=== PATIENT | female | born 1945 | race Caucasian/White ===

== ENCOUNTER 2016-05-27 10:00 | Day surgery (SDC) | payer MEDICARE, MEDICAID ==
[~2016-05-27] VITALS: Ht 160 cm; Wt 93.0 kg
[~2016-05-27 10:00] MED LIST: ACET325T51 PO; ALBU2.5V4 INHALATION; ALBU8.5H2 IH; AMIT10TA6 PO; ASCO250T7 PO; ASPI325T32 PO; BUPR150T8 PO; CHOL100043 PO; CYAN500 PO; CYAN500L3 SL; DIF100A PO; DIGO250T72 PO; DILT30TA PO; DIPH50C PO; DOCU-41 PO; FERR-83 PO; FLUT1DIS5 IH; FOLI1TAB18 PO; FRSM80T PO; GLPZ5T PO; HYDR-4003 PO; IBUP200C11 PO; LACT1CAP65 PO; LANS15TA3 PO; LORA-302 PO; LORA10CA PO; Lactated Ringer's 1,000 ML IV ONE; MAGN64TA7 PO; METO25TA6 PO; METR45GE TOP; MINE3.5O BOTH_EYES; MTC5T PO; MULT-1018 PO; MULT1CAP33 PO; NORT10CA PO; NYST15CR TP; OMEP20CA11 PO; POLY17PO6 PO; POTA-62 PO; PROM12.510 PO; PSEU30CA2 PO; SENN1TAB90 PO; SIMV20TA4 PO; TRAZ-115 PO
[2016-05-27] MEDS ORDERED: Propofol 10,000 mCg/mL 20 mL Inj ONE (10:01)
[2016-05-27 10:43] VITALS: BP 143/83; PULSE 103; RESP 14; O2SAT 94
[2016-05-27] MEDS ORDERED: Lactated Ringer's 1,000 ML IV SCH (10:51)
--- NOTE | 2016-05-27 10:51 | PCM.HPANE ---
Patient Data Surgeon Admitting Provider: Attending Provider:Qasim Curry MD Primary Care Physician:Jeffery Henriquez MD Other Provider:[facility] Reason for Visit Epigastic Abdominal Pain Ht/WT & BMI Height (Feet): 5 Height (Inches): 3 Weight (Kilograms): 92.99 Body Mass Index 36.00 Allergies Coded Allergies: Contrast Media (Unverified Allergy, Severe, Anaphylaxis, 11/07/14) I DID CONFIRM CONTRAST ALLERGY WITH PATIENT DUE TO PATIENT HAVING CONTRAST PRIOR WITHOUT COMPLICATIONS LISTED. PATIENT STATED "SHE ALMOST " WHEN ASKING ABOUT HER REACTION. SHE DID STATE IT WAS A CAT SCAN Shellfish (Verified Allergy, Severe, 11/07/14) iodine (Verified Allergy, Severe, 11/07/14) furosemide (Verified Allergy, Unknown, 05/26/16) warfarin (Verified Allergy, Unknown, 11/07/14) Uncoded Allergies: ANY SCENTS (Allergy, Unknown, 01/08/14) CLEANING CHEMICALS (Allergy, Unknown, 01/08/14) CARTWRIGHT (Allergy, Unknown, 01/08/14) Past Anesthesia History Anesthesia History: Denies:: Abnormal Airway, Anesthesia Reactions, Difficult Intubation, Fam Anesthesia Reaction, Fam Malignant Hypertherm, Malignant Hyperthermia Diabetes History Hx Diabetes?: Yes MRSA MRSA: Yes (knee, thigh, abdomen) Medications Blood Thinner: Aspirin Last Dose Blood Thinner: May 25, 2016 Reported Medications Bupropion ER (Wellbutrin SR)150 Mg Tablet.er150 Mg PO BID Ref 0 05/26/16 Pseudoephedrine HCl (Nasal Decongestant)30 Mg Isyzzhv57 Mg PO 05/26/16 Omeprazole 20 Mg Capsule.dr20 Mg PO DAILY Ref 0 05/26/16 Nystatin/Triamcin (Nystatin-Triamcinolone Cream)15 Gm Cream..g.15 Gm TP 05/26/16 Metoclopramide 5 Mg Tablet5 Mg PO QID PRN For Nausea Ref 0 05/26/16 Lansoprazole ODT (Prevacid ODT)15 Mg Xoohpe16 Mg PO DAILY Ref 0 05/26/16 Diltiazem 30 Mg Ritteb10 Mg PO QID 05/26/16 Cyanocobalamin (Vitamin B12)500 Mcg Xiqwan876 Mcg PO DAILY 10/26/15 Fluconazole (Diflucan)100 Mg Chv639 Mg PO X 1 DOSE YEAST Ref 0 2/29/16 Diphenhydramine Hcl (Benadryl)50 Mg Dyppfrr41 Mg PO Q6H ALLERGIES 07/06/15 Albuterol Neb Soln 2.5 Mg/3 Ml Vial.neb2.5 Mg INHALATION Q4H PRN For Wheezing Ref 0 07/06/15 Fluticasone/Salmeterol (Advair 500-50 Diskus)1 Each Disk.w.dev1 Puff IH BID Ref 0 07/06/15 Fluticasone/Salmeterol (Advair 500-50 Diskus)1 Each Disk.w.dev1 Puff IH BID Ref 0 04/20/15 Acetaminophen 325 Mg Qcalin284 Mg PO Q4H PRN For Fever Ref 0 03/26/15 Lorazepam (Ativan)0.5 Mg Tablet0.5 Mg PO Q8HRS PRN PRN For Insomnia Ref 0 03/26/15 Lactobacillus Acidophilus (Probiotic)1 Each Capsule1 Each PO WITH MEALS 03/26/15 Bupropion ER (Wellbutrin SR)150 Mg Tablet.er150 Mg PO BID Ref 0 03/26/15 Cholecalciferol (Vitamin D3) (Vitamin D)1,000 Unit Tablet1,000 Unit PO DAILY Ref 0 03/26/15 Potassium Chloride ER 20 Meq Tablet.er40 Meq PO DAILY Ref 0 TAKE WITH FOOD 03/26/15 Digoxin 250 Mcg Asqoqn494 Mcg PO DAILY Ref 0 03/26/15 Aspirin 325 Mg Bptcnh955 Mg PO DAILY #1 BOTTLE 03/26/15 Amitriptyline 10 Mg Hgtwqp40 Mg PO HS Ref 0 03/26/15 Polyethylene Glycol 3350 (Miralax)17 Gm Powd.pack17 Gm PO 03/19/15 Docusate Sodium (Colace)100 Mg Jcgrvov289 Mg PO BID PRN For Constipation Ref 0 03/19/15 Metoprolol Tartrate 25 Mg Pdiatm15 Mg PO BID 30 Days Ref 0 03/02/15 Glipizide 5 Mg Tablet2.5 Mg PO BIDAC 30 Days 03/02/15 Sennosides/Docusate Sodium (Senna-Docusate Sodium Tablet)1 Each Tablet2 Each PO HS 02/02/15 Loratadine (Claritin)10 Mg Gfgkayz71 Mg PO DAILY Ref 0 02/02/15 Hydrocodone-Acetaminophen 5-325 mg 1 Each Tablet1 Tablet PO Q4H PRN For Pain Ref 0 02/02/15 Cyanocobalamin (Vitamin B-12) (B-12)500 Mcg Tab.jahqwk170 Mcg SL 02/02/15 Ascorbic Acid (Vitamin C)250 Mg Tab.cbhk543 Mg PO DAILY #30 TABLET Ref 0 02/02/15 Magnesium Chloride (Mag64)64 Mg Tablet.er128 Mg PO BID 11/07/14 Trazodone 50 Mg Muyuec89 Mg PO DAILY 30 Days Ref 0 11/07/14 Mineral Oil/Petrolatum,White (Refresh Lacri-Lube Ointment)3.5 Gm Oint...g.3.5 Gm BOTH_EYES Q24 PRN dry eyes 11/07/14 Promethazine 12.5 Mg Dzmshg76.5 Mg PO Q6 11/07/14 Albuterol HFA (Proair HFA)8.5 Gm Hfa.aer.ad2 Puffs IH Q4 PRN For Shortness of Breath #1 INHALER 11/07/14 Metronidazole (Metronidazole Gel)1 Applic/0.25 Gm Gel1 Applic TOP DAILY #45 GM Ref 0 11/07/14 Furosemide 80 Mg Tab40 Mg PO DAILY 30 Days Ref 0 11/07/14 Ferrous Sulfate 325 Mg Nwccpr954 Mg PO DAILY 30 Days Ref 0 11/07/14 Multivitamin (Multi Vitamin Daily)1 Each Tablet1 Each PO DAILY 30 Days Ref 0 07/17/14 Simvastatin 20 Mg Tablet Mg PO HS 30 Days Ref 0 01/08/14 Ibuprofen (Advil)200 Mg Hqiawpy602 Mg PO Q6 PRN For Pain 01/08/14 Folic Acid 1 Mg Tablet1 Mg PO DAILY 30 Days 01/08/14 Nortriptyline 10 Mg Xzcilut64 Mg PO HS 30 Days 01/08/14 Discontinued Reported Medications Multivitamin (Multivitamins)1 Each Capsule1 Each PO 05/26/16 History History of ENT Problems?: No HEENT History: Positive for:: Dysphagia (mild) Denies:: Abnormal Airway Difficult Intubation Hearing Problem Denture Type: Full- Upper Full- Lower Hx of Heart Problems?: Yes Cardiovascular History: Positive for:: Atrial Fibrillation Congestive Heart Failure Edema (bilat lower exttremity lymphadema) Hypertension Irregular Heartbeat (afib) Other Cardiac History: CHF Hx of Respiratory Problem?: Yes Respiratory History: Positive for:: Asthma COPD Dyspnea Emphysema Pneumonia Other Resp Pertinent History: 2L of O2 at night time. Hx Neurologic Problems?: No Neurological History: Denies:: CVA Hx of GI Problems?: Yes Gastrointestinal History: Positive for:: Gall Bladder Disease (removed) Gastroesphageal Reflux Hiatal Hernia Other GI Pertinent History: hx UTI's Genitourinary History: Positive for:: Kidney Stones Female Hx: Denies:: Currently Hx Musculoskeletal Problems?: Yes Hx of Psycho/Social Problems?: No Psycho Social History: Positive for:: Hx Depression Hx Surgeries?: No (tonsillectomy,appy, hysterectomy, alok, lymph node diss., hernia repair,) Hx Any Other Health Problems?: Yes Other History: Positive for:: Cancer (NON HODGKINS LYMPHOMA) Hospitalization Denies:: Thyroid Disease History Blood Transfusions: Positive for:: Blood Transfusions Denies:: Blood Transfuse Reaction Hx Diabetes: Yes Hx Alcohol Use: NoHx Substance Use: No Smoking Status: Former Smoker Have You Smoked inLast 12 mo: No Stop/Bang Treated for Sleep Apnea?: No Do You Have a CPAP Machine?: No S-Snoring: Do You Snore Loudly: Yes T-Tired: feel tired, fatigued: No O-Obsered: Observed not breath: No P-Blood Pressure: treated: Yes B- Body Mass Index > 35 kg/m2: Yes A- Age over 50: Yes N- Neck Large Circumference: No G- Gender Male: No GIL Total Score: 4 GIL Risk Assessment: High Risk, =/>3 Yes Risk Assessment Category Category 1A: Patient has history of documented sleep apnea, and HAS NOT received any narcotic, sedative or anesthesia administration during this stay. Category 1B: Patient has history of documented sleep apnea, and HAS received any narcotic , sedative or anesthesia administration during this stay Category 2: Patient has SUSPECTED Obstructive Sleep Apnea, and HAS received any narcotic , sedative or anesthesia administration during this stay. Category 3: Patient has SUSPECTED Obstructive Sleep Apnea and HAS NOT received narcotic, sedative or anesthesia administration during this stay. Category 4: Outpatient in Procedural Areas with known sleep apnea or who screen positive for High Risk via the STOP/BANG questionnaire. Exam Exam Vital Signs Vital Signs Date Time Temp Pulse Resp B/P Pulse Ox O2 Delivery O2 Flow Rate FiO2 05/27/16 10:43 37.1 103 14 143/83 94 Room Air General Appearance: Oriented X3 HEENT/AIRWAY: MP 2 Lungs: Normal Air Movement Heart: Other Meds/Labs/Diagnostics Admission Meds Current Medications Lactated Ringer's (Lr) 1,000 ml @ 10 mls/hr Q24H ONCE IV Last administered on 05/27/16t 10:45; Start 05/27/16 at 06:00; Stop 05/28/16 at 05:59 Plan Impression Patient chart reviewed, patient interviewed and anesthestic plan with risks, benefits, and alternatives discussed, and informed consent obtained. ASA Physical Status: ASA3 Severe Disease Anesthetic Plan: MAC Bene/Risks/Altern/Consents: Yes HP Complete Prior to Induction: Yes Wei Tompkins MD May 27, 2016 10:50
[2016-05-27] MEDS ORDERED: Ondansetron 2 mg/mL 2 mL Inj IVPUSH PRN (10:55)
[2016-05-27] MEDS ORDERED: MetoCLOpramide 5 mg/mL 2 mL Inj IVPUSH PRN (10:55)
[2016-05-27 11:14] VITALS: BP 88/65; PULSE 97; RESP 17; O2SAT 91
[2016-05-27 11:20] VITALS: BP 94/66; PULSE 95; RESP 17; O2SAT 94
[2016-05-27 11:25] VITALS: BP 116/77; PULSE 94; RESP 17; O2SAT 94
[2016-05-27 11:35] VITALS: BP 104/78; PULSE 102; RESP 17; O2SAT 97
--- NOTE | 2016-05-27 11:39 | ENDO ---
[address] [address] ENDOSCOPY PROCEDURE PATIENT: PEACE KARIMI : 1945 MR#: [id number] ADMIT: 05/27/2016 JOB ID: [id number] DATE: 05/27/2016 TYPE OF OPERATION: Esophagogastroduodenoscopy with biopsy. PREOPERATIVE DIAGNOSIS(ES): GERD, epigastric pain. POSTOPERATIVE DIAGNOSIS(ES): Mild nonerosive gastritis with gastric erosions status post biopsy. ANESTHESIA: Monitored anesthesia care. COMPLICATIONS: None. BLOOD LOSS: Minimal. DESCRIPTION OF PROCEDURE: After the risks and benefits were explained to the patient, informed consent was obtained. After anesthesia administered, an upper endoscope was inserted into the mouth intubating the esophagus, stomach, second portion of duodenum. Mucosa carefully examined. After procedure was done, the scope was withdrawn and procedure terminated. FINDINGS: Upon entering the esophagus, the esophagus was normal without masses, ulcers, or lesions. Z-line located 40 cm from incisors. Upon entering the stomach, there was mild nonerosive gastritis and gastric erosions seen throughout the entire stomach. Retroflexion was normal. Duodenal bulb, first portion were normal. Biopsies taken antrum and body of the stomach and distal esophagus. IMPRESSIONS: Mild nonerosive gastritis and gastric erosions. RECOMMENDATION: 1. Await pathology results. 2. Continue anti-reflux medication. 3. Followup in GI clinic as needed.
--- NOTE | 2016-05-27 11:56 | PCM.ANEP1 ---
Post Anesthesia Phase 1 PACU Phase 1 Assessment Vital Signs Vital Signs Date Time Temp Pulse Resp B/P Pulse Ox O2 Delivery O2 Flow Rate FiO2 05/27/16 10:43 37.1 103 14 143/83 94 Room Air Anesthetic Administered: MAC Level of Alertness: Awake, talking Pain: No Nausea or Vomiting: No Oxygen Delivery: Room Air Lungs: Normal Air Movement Wei Tompkins MD May 27, 2016 11:56
--- NOTE | 2016-05-27 11:56 | PCM.ANEP2 ---
Post Anesthesia Evaluation ASA/CMS Post Anesthesia VS in Patient's Normal Range?: Yes Resp Stable; Airway Patent?: Yes CV Function & Hydration Stable: Yes Mental Status Recovered?: Yes Pain control Satisfactory?: Yes N/V Control Satisfactory?: Yes Wei Tompkins MD May 27, 2016 11:56
--- NOTE | 2016-05-31 14:20 | PATH ---
SURGICAL PATHOLOGY Attending Physician:Qasim Curry MD CASE STATUS: Signed Out PATIENT NAME: PEACE KARIMI PID: [id number] : 1945 DATE COLLECTED:05/27/2016 16:23 SPECIMEN: 1: Stomach, Antrum, Biopsy 2: Gastric, Biopsy 3: Esophagus, Biopsy CLINICAL HISTORY: 1: ANTRUM BIOPSY 2: GASTRIC BODY BIOPSY 3: DISTAL ESOPHAGUS BIOPSY FINAL DIAGNOSIS: 1. Antrum Biopsy: Mild to moderate chronic gastritis involving antral mucosa. Negative for Helicobacter pylori by immunohistochemistry. Negative for intestinal metaplasia. Negative for dysplasia and malignancy. 2. Gastric Body Biopsy: Mild to moderate chronic gastritis involving fundic mucosa. Negative for Helicobacter pylori by immunohistochemistry. Negative for intestinal metaplasia. Negative for dysplasia and malignancy. 3. Distal Esophagus Biopsy: Squamous mucosa with mild reactive changes and scattered intraepithelial eosinophils consistent with changes from chronic reflux. No gastric-type epithelium identified. Negative for dysplasia and malignancy. ICD10 K29.70 GROSS DESCRIPTION: The specimen is received in three formalin filled containers labeled with the patient's name. 1. The specimen is sublabeled "antrum" and consists of 2 portions of tissue which aggregate to 0.5 x 0.3 x 0.2 CM. The specimen is entirely submitted in cassette 1A. 2. The specimen is sublabeled "gastric body" and consists of 4 portions of tissue which aggregate to 0.3 x 0.3 x 0.2 CM. The specimen is entirely submitted in cassette 2A. 3. The specimen is sublabeled "distal esophagus" and consists of 2 portions of tissue which aggregate to 0.3 x 0.2 x 0.2 CM. The specimen is entirely submitted in cassette 3A. 05/27/2016 [facility] ICD-9 CODES: CPT CODES: 1: 06936, 31851 2: 10132, 90460 3: 90249 Electronically Signed Out Nathan Nobles MD [facility] [place] [address] Technical component performed at [facility], [facility] [address], [place], [address]
== END 2016-05-27 23:59 | disposition home or self-care (01) ==
LOC: END 10:00
PROVIDERS: ATTEND Internal Medicine Gastroenterology
DX: K29.50 Unspecified chronic gastritis without bleeding (principal); K25.9 Gastric ulcer, unspecified as acute or chronic, without hemorrhage or perforation; K21.9 Gastro-esophageal reflux disease without esophagitis; I11.0 Hypertensive heart disease with heart failure; I50.20 Unspecified systolic (congestive) heart failure; I48.91 Unspecified atrial fibrillation; J44.9 Chronic obstructive pulmonary disease, unspecified; J45.909 Unspecified asthma, uncomplicated; F32.9 Major depressive disorder, single episode, unspecified; M17.10 Unilateral primary osteoarthritis, unspecified knee; E78.2 Mixed hyperlipidemia; E11.9 Type 2 diabetes mellitus without complications; C85.90 Non-Hodgkin lymphoma, unspecified, unspecified site; Z79.51 Long term (current) use of inhaled steroids; Z79.82 Long term (current) use of aspirin; Z79.84 Long term (current) use of oral hypoglycemic drugs
CPT/HCPCS: 43239; J7120

== ENCOUNTER 2016-11-14 13:00 | Emergency (ER) | payer MEDICARE, MEDICAID ==
[~2016-11-14] VITALS: Ht 160 cm; Wt 93.2 kg
[~2016-11-14 13:00] MED LIST changes: -Lactated Ringer's 1,000 ML IV ONE; -MULT1CAP33 PO
[2016-11-14 13:06] VITALS: BP 102/53; PULSE 86; RESP 18; O2SAT 93
--- NOTE | 2016-11-14 13:07 | ED.REPORT ---
HPI-General Illness Date of Service Nov 14, 2016 ED Provider: Dr. Doran Pt is a 71 year old female with a hx of CHF, COPD, afib, cancer, DM, HTN and hyperlipidemia presenting to the ED via EMS complaining of severe abdominal pain onset this morning. She states that she thinks she may have a hernia. Associated symptoms include a cough. Denies vomiting, diarrhea, fever, chills, dysuria, urinary symptoms, or any other symptoms at this time. She is on Digoxin. Nursing Notes Stated Complaint: ABDOMINAL PAIN Chief Complaint: Female Abdominal Pain Nursing Notes Reviewed: Yes Allergies: Coded Allergies: Contrast Media (Unverified Allergy, Severe, Anaphylaxis, 11/07/14) I DID CONFIRM CONTRAST ALLERGY WITH PATIENT DUE TO PATIENT HAVING CONTRAST PRIOR WITHOUT COMPLICATIONS LISTED. PATIENT STATED "SHE ALMOST " WHEN ASKING ABOUT HER REACTION. SHE DID STATE IT WAS A CAT SCAN Shellfish (Verified Allergy, Severe, 11/07/14) iodine (Verified Allergy, Severe, 11/07/14) furosemide (Verified Allergy, Unknown, 05/26/16) warfarin (Verified Allergy, Unknown, 11/07/14) Uncoded Allergies: ANY SCENTS (Allergy, Unknown, 01/08/14) CLEANING CHEMICALS (Allergy, Unknown, 01/08/14) CARTWRIGHT (Allergy, Unknown, 01/08/14) Scheduled Amitriptyline (Amitriptyline) 10 Mg Tablet 10 MG PO HS Ascorbic Acid (Vitamin C) 250 Mg Tab.chew 250 MG PO DAILY Aspirin (Aspirin) 325 Mg Tablet 325 MG PO DAILY Bupropion ER (Wellbutrin SR) 150 Mg Tablet.er 150 MG PO BID Bupropion ER (Wellbutrin SR) 150 Mg Tablet.er 150 MG PO BID Cephalexin (Keflex) 500 Mg Capsule 500 MG PO QID Cholecalciferol (Vitamin D3) (Vitamin D) 1,000 Unit Tablet 1,000 UNIT PO DAILY Cyanocobalamin (Vitamin B12) 500 Mcg Tablet 500 MCG PO DAILY Digoxin (Digoxin) 250 Mcg Tablet 250 MCG PO DAILY Diltiazem (Diltiazem) 30 Mg Tablet 30 MG PO QID Diphenhydramine Hcl (Benadryl) 50 Mg Capsule 50 MG PO Q6H Ferrous Sulfate (Ferrous Sulfate) 325 Mg Tablet 325 MG PO DAILY Fluconazole (Diflucan) 100 Mg Tab 100 MG PO X 1 DOSE Fluticasone/Salmeterol (Advair 500-50 Diskus) 1 Each Disk.w.dev 1 PUFF IH BID Fluticasone/Salmeterol (Advair 500-50 Diskus) 1 Each Disk.w.dev 1 PUFF IH BID Folic Acid (Folic Acid) 1 Mg Tablet 1 MG PO DAILY Furosemide (Furosemide) 80 Mg Tab 40 MG PO DAILY Glipizide (Glipizide) 5 Mg Tablet 2.5 MG PO BIDAC Lactobacillus Acidophilus (Probiotic) 1 Each Capsule 1 EACH PO WITH MEALS Lansoprazole ODT (Prevacid ODT) 15 Mg Tablet 15 MG PO DAILY Loratadine (Claritin) 10 Mg Capsule 10 MG PO DAILY Magnesium Chloride (Mag64) 64 Mg Tablet.er 128 MG PO BID Metoprolol Tartrate (Metoprolol Tartrate) 25 Mg Tablet 25 MG PO BID Metronidazole (Metronidazole Gel) 1 Applic/0.25 Gm Gel 1 APPLIC TOP DAILY Multivitamin (Multi Vitamin Daily) 1 Each Tablet 1 EACH PO DAILY Nortriptyline (Nortriptyline) 10 Mg Capsule 10 MG PO HS Omeprazole (Omeprazole) 20 Mg Capsule.dr 20 MG PO DAILY Potassium Chloride ER (Potassium Chloride ER) 20 Meq Tablet.er 40 MEQ PO DAILY TAKE WITH FOOD Promethazine (Promethazine) 12.5 Mg Tablet 12.5 MG PO Q6 Sennosides/Docusate Sodium (Senna-Docusate Sodium Tablet) 1 Each Tablet 2 EACH PO HS Simvastatin (Simvastatin) 20 Mg Tablet MG PO HS Trazodone (Trazodone) 50 Mg Tablet 75 MG PO DAILY Scheduled PRN Acetaminophen (Acetaminophen) 325 Mg Tablet 325 MG PO Q4H PRN PRN For Fever Albuterol HFA (Proair HFA) 8.5 Gm Hfa.aer.ad 2 PUFFS IH Q4 PRN PRN For Shortness of Breath Albuterol Neb Soln (Albuterol Neb Soln) 2.5 Mg/3 Ml Vial.neb 2.5 MG INHALATION Q4H PRN PRN For Wheezing Docusate Sodium (Colace) 100 Mg Capsule 100 MG PO BID PRN PRN For Constipation Hydrocodone-Acetaminophen 5-325 mg (Hydrocodone-Acetaminophen 5-325 mg) 1 Each Tablet 1 TABLET PO Q4H PRN PRN For Pain Ibuprofen (Advil) 200 Mg Capsule 200 MG PO Q6 PRN PRN For Pain Lorazepam (Ativan) 0.5 Mg Tablet 0.5 MG PO Q8HRS PRN PRN PRN For Insomnia Metoclopramide (Metoclopramide) 5 Mg Tablet 5 MG PO QID PRN PRN For Nausea Mineral Oil/Petrolatum,White (Refresh Lacri-Lube Ointment) 3.5 Gm Oint...g. 3.5 GM BOTH_EYES Q24 PRN PRN dry eyes Miscellaneous Medications Cyanocobalamin (Vitamin B-12) (B-12) 500 Mcg Tab.rapdis 500 MCG SL Nystatin/Triamcin (Nystatin-Triamcinolone Cream) 15 Gm Cream..g. 15 GM TP Polyethylene Glycol 3350 (Miralax) 17 Gm Powd.pack 17 GM PO Pseudoephedrine HCl (Nasal Decongestant) 30 Mg Capsule 60 MG PO General Time Seen by MD: 13:06 Chief Complaint Abdominal pain Hx Obtained From: Patient, EMS Arrived By: Ambulance Sudden in Onset?: No Onset Occurred: Just prior to arrival Symptom Duration: Since onset Location: : Abdomen Quality: Painful Severity: Current: Moderate Severity: Maximum: Severe Recent Healthcare: No recent doctor visit, No recent hospitalization Similar Sx Previous: No Past Medical History Past Medical History History of sepsis with septic shock Constipation History of DVT Adrenal insufficiency Reports: COPD, Cancer, Congestive heart failure, Diabetes mellitus, GERD, Hyperlipidemia, Hypertension Reports: Atrial fibrillation, Depression, Obesity Smoking History Former Smoker Social History Alcohol Use: Denies alcohol use Drug Use: Denies drug use Ambulatory Status Independent Review of Systems Full Review of Systems Constitutional: Denies: Chills, Fever Respiratory: Reports: Non-productive cough GI: Reports: Abdominal pain, Denies: Diarrhea, Nausea, Vomiting Female: Denies: Dysuria, Urinary frequency, Urination decreased Complete sys rev & neg: except as marked. Physical Exam Vital Signs Vital Signs Date Time Temp Pulse Resp B/P Pulse Ox O2 Delivery O2 Flow Rate FiO2 11/14/16 18:01 98 18 111/71 97 11/14/16 15:44 37.3 98 18 106/44 92 Room Air 11/14/16 13:06 38.1 86 18 102/53 93 Room Air Initial VS: Reviewed General/Constitutional: Well-developed, Well-nourished Head / Eyes: Atraumatic, Normocephalic, PERRL ENT: Mucous membranes moist, Conjunctiva normal, No scleral icterus Respiratory: Breath sounds normal, Clear to auscultation, No respiratory distress Back: No CVA tenderness Extremities: Vascular intact, Neuro intact, No swelling, No tenderness Skin: Warm, Dry, No cyanosis Neurologic: Alert, Oriented, Nonfocal Psychiatric: Mood/affect normal, Behavior normal, Normal thought content Cardiovascular: Heart rate NL, Regular rhythm Murmur Abdomen: No guarding, No rebound, No palpable mass Upper abdominal tenderness. Focal upper quadrant tenderness at area of a scar in upper abd. Soft reducible umbilical hernia. Interpretation & Diagnostics Lab Results Interpretation Result Diagram: 11/14/16 1336 11/14/16 1336 Test 11/14/16 13:36 11/14/16 14:40 White Blood Count 10.4th/mm3 (3.8-10.1) Red Blood Count 4.29mil/mm3 (3.90-5.20) Hemoglobin 12.6g/dL (12.0-15.6) Hematocrit 39.3% (35.0-46.0) Mean Corpuscular Volume 91.6fL (81-100) Mean Corpuscular Hemoglobin 29.4pg (27.0-35.0) Mean Corpuscular Hemoglobin Concent 32.1% (32.0-37.0) Red Cell Distribution Width 17.7% (12.3-15.4) Platelet Count 138bil/L (150-400) Neutrophils (%) (Auto) 81.8% (40-74) Lymphocytes (%) (Auto) 7.8% (14-46) Monocytes (%) (Auto) 8.1% (4-12) Eosinophils (%) (Auto) 1.7% (0-5) Basophils (%) (Auto) 0.2% (0-3) Prothrombin Time 11.7sec (8.1-12.5) Prothromb Time International Ratio 1.09ratio Sodium Level 137mEq/L (134-144) Potassium Level 4.2mEq/L (3.5-5.2) Chloride Level 101mEq/L (97-108) Carbon Dioxide Level 22mmol/L (18-29) Blood Urea Nitrogen 15mg/dL (8-27) Creatinine 0.43mg/dL (0.57-1.00) Estimat Glomerular Filtration Rate 207mL/min (>59) Glucose Level 97mg/dL (60-99) Lactic Acid Level 1.1mmol/L (0.4-2.0) Calcium Level 9.2mg/dL (8.5-10.1) Magnesium Level 1.8mg/dL (1.6-2.6) Total Bilirubin 0.9mg/dL (0.0-1.2) Aspartate Amino Transf (AST/SGOT) 20U/L (0-50) Alanine Aminotransferase (ALT/SGPT) 11U/L (0-32) Alkaline Phosphatase 111U/L (25-165) Total Protein 7.5g/dL (6.4-8.4) Albumin 3.4g/dL (3.4-5.0) Lipase 29U/L (13-60) Digoxin Level 2.2nG/mL (0.9-2.0) Urine Color Yellow (YELLOW) Urine Appearance Hazy (CLEAR,HAZY) Urine pH 6.0 (5.0-8.0) Urine Specific [place] 1.005 (1.003-1.035) Urine Protein Negativemg/dL (NEG,TRACE) Urine Glucose (UA) Negativemg/dL (NEGATIVE) Urine Ketones Negativemg/dL (NEGATIVE) Urine Occult Blood Trace (NEGATIVE) Urine Nitrite Negative (NEGATIVE) Urine Bilirubin Negative (NEGATIVE) Urine Urobilinogen Normalmg/dL (NORMAL) Urine Leukocyte Esterase Moderate (NEGATIVE) Urine RBC 0-2/hpf (0-2) Urine WBC 11-50/hpf (0-5) Urine Epithelial Cells Occasional/hpf (NONE-MOD) Urine Crystals None seen (NONE SEEN) Urine Bacteria Many/hpf (NONE-FEW) Urine Hyaline Casts None/lpf (NONE) Urine Granular Casts None seen (NONE SEEN) Urine Waxy Casts None seen (NONE SEEN) Urine Red Blood Cell Casts None seen (NONE SEEN) Urine White Blood Cell Casts None seen (NONE SEEN) Urine Mucus None seen (None Seen) Urine Trichomonas None seen (NONE SEEN) Urine Yeast None (NONE SEEN) Urinalysis Comment None Urine Culture Reflexed Indicated X-Ray Chest Interpretation Chest Xray Interpretation: IMPRESSION: 1. Cardiomegaly as before, without acute cardiopulmonary disease. 2. Trace basal right pleural effusion is of uncertain etiology and clinical significance. Dictated by: Chuck Padgett M.D. on 11/14/2016 at 13:05 View: Portable, 1 view Interpretation / Wet Read by: Interpret - Radiologist CT Abd / Pelvis Interpretation IMPRESSION: Nonobstructive left renal calculi. Nonspecific small 2 mm right renal calcification with differential discussed above. Scant scattered pelvic free fluid, nonspecific finding and unclear etiology. Patient clinically. Soft tissue skin nodules seen in the left anterior abdominal wall. Recommend clinical correlation and direct visual inspection. Skin malignancy cannot be excluded. Prominent bilateral flank subcutaneous edema. No evidence of urinary obstruction. Small bilateral pleural effusions with adjacent atelectasis. Cardiomegaly. Additional chronic and incidental findings as above. Dictated by: Yahir Zaldivar M.D. on 11/14/2016 at 14:18 Study type: Abdominal CT no contrast Interpretation / Wet Read by: Interpret - Radiologist Re-Eval/Medical Decision Med Decision/Clinical Course Patient's pain is focal in the midline upper abdomen overlying scar, there is not radiographic correlation with this on a CAT scan. She does have congestive heart failure and several other incidental findings. Urinalysis is positive for UTI, normal white blood cell count, normal lactic acid, no CVA tenderness, likely a lower urinary tract infection. Temperature was borderline however normalized without any antipyretics. Her Digoxin is mildly outside of the acceptable range she is not having any cardiotoxic effects. Her case is discussed with her primary care who manages her at the residential home, it is felt that she is stable for discharge back. She will hold her digoxin for 4 days, she was given a dose of Rocephin while in the ER and will be started on Keflex. She will be in a monitored care setting. Return in follow-up precautions are given. Time of Eval: 14:45 Patient Status: Condition improved Re-Evaluation/Progress Note: The pt still complains of abdominal pain. Discussed CT and radiology results. Area of pain directly correlates to skin and foci of scar tissue, does not show anything on CT scan. Pt feels good to go home. Consultation : Referral / Consult Name: Charmaine Decker MD Consulted With: Primary care physician Call Returned at: 15:37 Civil Lawyer: Agrees with plan Note: Agrees to take the patient back. Counseled Regarding: Diagnosis, Lab results, Need for follow-up, When/why to return to ED Discharge & Departure Primary Impression: UTI (urinary tract infection) Urinary tract infection type: site unspecified Hematuria presence: without hematuria Qualified Code: N39.0 - Urinary tract infection, site not specified Additional Impressions: Elevated digoxin level Pain, abdominal, nonspecific Disposition: Home Discharge Condition All VS Reviewed: Yes Condition: Improved Additional Instructions: Your workup in the ER does not show an obvious cause for your upper abdominal pain. Your pain seems to correlate to a scar on your upper abdomen. Incidentally you have evidence of a urinary tract infection. This was treated with IV Rocephin while in the ER and will be continued with Keflex at your nursing facility. Additionally your digoxin level was minimally above normal range. Do not take your digoxin for the next 4 days and after 4 days you should have a repeat digoxin level drawn prior to restarting digoxin. Call your regular doctor in the morning for close reevaluation and follow-up. Return to the ER if you develop persistent abdominal pain, high fever, or other concerns. Referrals: Charmaine Decker MD Attestation Portions of this note were transcribed by Krystina De Los Santos. I, Dr. Doran personally performed the history, physical exam and medical decision-making; I reviewed and confirmed the accuracy of the information in the transcribed note. Signed by: Adriana Ware, 11/14/16 at 1549. copies to: Charmaine Decker MD, Timothy Trevor RAVI Nov 14, 2016 13:07 KRYSTINA DE LOS SANTOS Nov 14, 2016 13:18
[2016-11-14] MEDS ORDERED: Ondansetron 2 mg/mL 2 mL Inj IVPUSH PRN (13:20)
[2016-11-14 13:43] LABS: BASOPHILS % (AUTO) 0.2 % (0-3); EOSINOPHILS % (AUTO) 1.7 % (0-5); MONOCYTES % (AUTO) 8.1 % (4-12); Mean Corpuscular Hemoglobin 29.4 pg (27.0-35.0); Mean Corpuscular Volume 91.6 fL (81-100); NEUTROPHILS % (AUTO) 81.8 % (40-74); Platelet Count 138 bil/L (150-400)
[2016-11-14 14:04] LABS: INR 1.09 ratio
--- NOTE | 2016-11-14 14:08 | DRSVH ---
PROCEDURE: X-RAY CHEST ONE VIEW, PORTABLE ([id number]) INDICATIONS: 71 year-old female with left abdominal pain and cough. TECHNIQUE: One view of the chest was acquired. COMPARISON: [facility], CR, CHEST 1VW (PORTABLE), 11/11/2014, 6:31. [facility], CR, CHEST 1VW (PORTABLE), 11/09/2014, 6:15. [facility], , CHEST 1VW (PORTABLE), 07/2014, 11:37. FINDINGS: Surgical changes and devices: None. Lungs and pleura: There is trace basal right pleural effusion. No pneumothorax. Lungs are clear. Mediastinum: Mediastinal contours appear normal. Cardiomegaly is unchanged. There is aortic atheros clerosis. Bones and chest wall: No suspicious bony lesions. Overlying soft tissues appear unremarkable. IMPRESSION: 1. Cardiomegaly as before, without acute cardiopulmonary disease. 2. Trace basal right pleural effusion is of uncertain etiology and clinical significance. Dictated by: Chuck Padgett M.D. on 11/14/2016 at 13:05 Approved by: Chuck Padgett M.D. on 11/14/2016 at 13:06
[2016-11-14 14:15] LABS: Magnesium 1.8 mg/dL (1.6-2.6)
--- NOTE | 2016-11-14 14:30 | DRSVH ---
PROCEDURE: CT KUB ([id number]) INDICATIONS: upper abd pain, TECHNIQUE: Noncontrast 5 mm thick sections acquired from the diaphragms to the symphysis. 5 mm thick coronal an d sagittal reformats were then performed. For radiation dose reduction, the following was used: aut omated exposure control, adjustment of mA and/or kV according to patient size. COMPARISON: Outside Film, CT, ABD/PELVIS W/CON (PN), 10/15/2012, 8:37. FINDINGS: Image quality: Excellent. Lung bases: Small bilateral pleural effusions with adjacent atelectasis. The heart is enlarged. Urinary system: Both kidneys are normal in size. Faint calcification seen in the right kidney on slade ge 46 measuring 2 mm however unclear if this is vascular, dystrophic or nephrolithiasis. Multiple non obstructive left renal calculi measuring up to 3 mm. There is left renal cortical scarring/infarcts. No hydronephrosis or perinephric fat stranding. Both ureters appear non-dilated throughout their exp ected courses. Bladder wall thickness is normal; no calcified bladder stones. Other solid organs: Liver and spleen are normal in size. Gallbladder surgically absent. Pancreas i s normal in contours. Unchanged right adrenal nodule with internal calcification is noted, grossly st able since 10/15/12.. Peritoneum and bowel: Unenhanced bowel loops demonstrate normal wall thickness and caliber. There is scant pelvic free fluid. Nodes and vessels: No retroperitoneal or mesenteric adenopathy by size criteria. Aorta and inferior vena cava are normal in caliber. Abdominal wall: Fluid and fat containing midline ventral hernia. There is a skin and subcutaneous nod ule involving the left anterior abdominal wall image 75 series 2 measuring 2 cm. Pelvis: No inguinal hernias or adenopathy. Bilateral flank subcutaneous edema. Bones: Presumed vertebral body hemangioma on image 8 with internal trabeculations. Diffuse osteopeni a. No suspicious bony lesions. No vertebral body compression fractures. IMPRESSION: Nonobstructive left renal calculi. Nonspecific small 2 mm right renal calcification with differential discussed above. Scant scattered pelvic free fluid, nonspecific finding and unclear etiology. Patient clinically. Soft tissue skin nodules seen in the left anterior abdominal wall. Recommend clinical correlation and direct visual inspection. Skin malignancy cannot be excluded. Prominent bilateral flank subcutaneous edema. No evidence of urinary obstruction. Small bilateral pleural effusions with adjacent atelectasis. Cardiomegaly. Additional chronic and incidental findings as above. Dictated by: Yahir Zaldivar M.D. on 11/14/2016 at 14:18 Approved by: Yahir Zaldivar M.D. on 11/14/2016 at 14:28
[2016-11-14 15:14] LABS: APPEARANCE,URINE HAZY (CLEAR,HAZY); COLOR,URINE YELLOW (YELLOW); OCCULT BLOOD,URINE TRACE (NEGATIVE); UROBILINOGEN,URINE NORMAL (NORMAL)
[2016-11-14] MEDS ORDERED: cefTRIAXone Inj 2,000 MG in Dextrose 5% Minibag Plus 50 ML IV ONE (15:40)
[2016-11-14 15:44] VITALS: BP 106/44; PULSE 98; RESP 18; O2SAT 92
[2016-11-14] MEDS ORDERED: CEPH-512 PO (15:48)
[2016-11-14 18:01] VITALS: BP 111/71; PULSE 98; RESP 18; O2SAT 97
== END 2016-11-14 18:02 | disposition home or self-care (01) ==
LOC: EDBD 13:00 → SED 13:00
DX: N39.0 Urinary tract infection, site not specified (principal); R79.89 Other specified abnormal findings of blood chemistry; B96.20 Unspecified Escherichia coli [E. coli] as the cause of diseases classified elsewhere; I11.0 Hypertensive heart disease with heart failure; J44.9 Chronic obstructive pulmonary disease, unspecified; I48.91 Unspecified atrial fibrillation; E11.9 Type 2 diabetes mellitus without complications; E78.5 Hyperlipidemia, unspecified; K21.9 Gastro-esophageal reflux disease without esophagitis; F32.9 Major depressive disorder, single episode, unspecified; Z88.8 Allergy status to other drugs, medicaments and biological substances; Z87.891 Personal history of nicotine dependence; Z86.718 Personal history of other venous thrombosis and embolism; Z79.82 Long term (current) use of aspirin; Z91.041 Radiographic dye allergy status
CPT/HCPCS: 36415; 51701; 71010; 74176; 80053; 80162; 81000; 83605; 83690; 83735; 85025; 85610; 87077; 87086; 87088; 87186; 90791; 96365; 96375; 99285; J0696; J2405